=== PATIENT | male | born 1980 | race Caucasian/White ===

== ENCOUNTER 2017-04-13 14:32 | Emergency (ER) | payer SELFPAY ==
[~2017-04-13] VITALS: Ht 167.6 cm; Wt 70.9 kg
[2017-04-13 15:06] VITALS: BP 125/74
[2017-04-13] MEDS ORDERED: SEROQUEL400 MG PO (15:22)
[2017-04-13] MEDS ORDERED: ANIMAL CHEWS1 EACH PO (15:24)
[2017-04-13] MEDS ORDERED: MOTRIN800 MG PO (17:29)
[2017-04-13] MEDS ORDERED: FLEXERIL10 MG PO (17:29)
== END 2017-04-13 17:50 | disposition home or self-care (01) ==
LOC: EME 14:32
DX: S09.90XA Unspecified injury of head, initial encounter (principal); S30.810A Abrasion of lower back and pelvis, initial encounter; S80.812A Abrasion, left lower leg, initial encounter; S80.811A Abrasion, right lower leg, initial encounter; Y04.2XXA Assault by strike against or bumped into by another person, initial encounter; Z87.442 Personal history of urinary calculi; K21.9 Gastro-esophageal reflux disease without esophagitis; F17.200 Nicotine dependence, unspecified, uncomplicated
CPT/HCPCS: 70450; 72040; 99281; 99284